=== PATIENT | female | born 1980 | race African-American/Black ===

== ENCOUNTER 2018-08-30 11:47 | Observation (INO) | payer MEDICAID ==
[~2018-08-30] VITALS: Ht 172.7 cm; Wt 137.4 kg
[2018-08-30 13:31] LABS: CLARITY URINE CLEAR (CLEAR); COLOR URINE YELLOW (YELLOW); KETONES URINE NEGATIVE (NEGATIVE); LEUKOCYTE ESTERASE URINE NEGATIVE (NEGATIVE); NITRITE URINE NEGATIVE (NEGATIVE); OCCULT BLOOD URINE NEGATIVE (NEGATIVE); PROTEIN URINE NEGATIVE (NEGATIVE); SPECIFIC GRAVITY URINE 1.011 (1.005-1.030)
[2018-08-30] MEDS ORDERED: PNV1TABL50 MT (15:11)
== END 2018-08-30 15:00 | disposition home or self-care (01) ==
LOC: 8 EST LDRP 11:47
PROVIDERS: ADMIT Obstetrics & Gynecology; ATTEND Obstetrics & Gynecology
DX: O26.893 Other specified pregnancy related conditions, third trimester (principal); R10.30 Lower abdominal pain, unspecified; R35.0 Frequency of micturition; Z3A.35 35 weeks gestation of pregnancy
CPT/HCPCS: 81003; G0378; 99281